=== PATIENT | female | born 1955 | race African-American/Black ===

== ENCOUNTER 2018-07-05 10:24 | Emergency (ER) | payer MEDICAID ==
[~2018-07-05] VITALS: Ht 172.7 cm; Wt 58.0 kg
[~2018-07-05 10:24] MED LIST: BENZ1TAB7 PO; QUET400T PO; SERT50TA12 PO
[2018-07-05 15:32] LABS: BASOPHILS % 0.7 % (0.0-2.0); EOSINOPHILS % 1.2 % (0.0-5.0); HEMATOCRIT. 36.5 % (36.0-48.0); HEMOGLOBIN. 12.1 g/dL (12.0-16.0); LYMPHOCYTES % 29.9 % (20.0-50.0); MEAN CORPUSCULAR HEMOGLOBIN 31.4 pg (28.0-32.0); MEAN CORPUSCULAR VOLUME 94.4 fL (81.0-99.0); MEAN PLATELET VOLUME 9.6 fl (7.4-10.4); MONOCYTES % 7.7 % (2.0-8.0); NEUTROPHILS % 60.5 % (40.0-76.0); PLATELET 228 x1000/uL (130-400); RED BLOOD CELL COUNT 3.87 mill/uL (4.2-5.4); RED CELL DISTRIBUTION WIDTH 13.3 % (11.6-14.6)
[2018-07-05 15:35] LABS: CHLORIDE 106 mEq/L (98-107)
[2018-07-05 19:14] VITALS: BP 133/66
[2018-07-05] MEDS ORDERED: IOHEXOL-300 100 ML BOTTLE ONE (19:49)
== END 2018-07-05 19:10 | disposition home or self-care (01) ==
LOC: ER 10:33
DX: K12.2 Cellulitis and abscess of mouth (principal); M19.90 Unspecified osteoarthritis, unspecified site
CPT/HCPCS: 10060; 36415; 70487; 72100; 80053; 85025; 99284; Q9967